=== PATIENT | male | born 1975 ===

== ENCOUNTER 2023-11-08 12:08 | Day surgery (SDC) | payer OTHER ==
[~2023-11-08 12:08] MED LIST: Midazolam 1 MG/ML 2 ML SDV ONE; Propofol 200 MG/20 ML SDV ONE
[2023-11-08] MEDS ORDERED: Sodium Chloride 0.9% 10 ML Syringe FLUSH PRN (12:30)
[2023-11-08] MEDS: Lactated Ringers 1,000 ML IV SCH (13:04)
== END 2023-11-08 15:07 | disposition home or self-care (01) ==
LOC: LL.SDS 12:08
PROVIDERS: ATTEND Surgery
DX: Z12.11 Encounter for screening for malignant neoplasm of colon (principal); D12.3 Benign neoplasm of transverse colon; D12.5 Benign neoplasm of sigmoid colon; N40.1 Benign prostatic hyperplasia with lower urinary tract symptoms; R35.0 Frequency of micturition; N52.9 Male erectile dysfunction, unspecified; Z79.899 Other long term (current) drug therapy
CPT/HCPCS: 00811; J2250; J2704; J7120